=== PATIENT | female | born 1935 | race Two or more races ===

== ENCOUNTER 2018-05-31 09:28 | Inpatient (IN) | payer OTHER, MEDICARE ==
[~2018-05-31] VITALS: Ht 160 cm; Wt 49.0 kg
[2018-05-31] VITALS (36 sets, daily range): BP systolic 56–161; BP diastolic 25–108
[~2018-05-31 09:28] MED LIST: HYDR-4384 PO; METF-834 PO
--- NOTE | 2018-05-31 09:30 | NUR ---
PT NITHYA FROM [facility] C/O SOB, SPO2 IN 70S AT FACILITY. TEMPERATURE OF 103.1. PT IN BED AND ON MONITOR. WILL CONTINUE TO MONITOR.
--- NOTE | 2018-05-31 09:56 | NUR ---
TECH AT BEDSIDE FOR CXR
[2018-05-31] MEDS ORDERED: ACETAMINOPHEN 650 MG/SUPP.RECT RC ONE ×2 (10:00→10:15)
[2018-05-31] MEDS ORDERED: PIPERACILLIN /TAZOBACTAM 3.375 G in IV D5W 50 ML IV ONE (10:00)
[2018-05-31] MEDS ORDERED: IV NS 0.9% 1,000 ML BAG IV ONE (10:00)
[2018-05-31] MEDS ORDERED: VANCOMYCIN 1 GM in IV D5W 250 ML IV ONE (10:00)
--- NOTE | 2018-05-31 10:05 | NUR ---
URINE COLLECTED AND SENT TO LAB
[2018-05-31 10:06] LABS: BILIRUBIN,URINE SMALL (NEGATIVE); BLOOD, URINE Large Ery/uL (NEGATIVE); COLOR,URINE Yellow (YELLOW); KETONES,URINE Trace (NEGATIVE); LEUKOCYTE ESTERASE ,URINE Large (NEGATIVE); NITRITE, URINE Negative (NEGATIVE); PROTEIN,URINE 100 mg/dl (NEGATIVE); UGLUCOSE Negative (NEGATIVE); UROBILINOGEN,URINE 0.2 EU/dL (0.2)
[2018-05-31 10:07] LABS: APPEARANCE,URINE CLOUDY (CLEAR); BASOPHILS % (AUTO) 0.1 % (0.0-2.0); EOSINOPHILS % (AUTO) 1.8 % (0.0-6.0); HEMATOCRIT 35 % (33-45); HEMOGLOBIN 11.7 g/dL (11.5-14.8); LYMPHOCYTES # (AUTO) 0.8 /CMM (0.8-4.8); MEAN CORPUSCULAR HGB CONC 33 g/dl (31.0-36.0); MEAN CORPUSCULAR VOLUME 94 fL (82-100); MONOCYTES % (AUTO) 7.3 % (2.0-12.0); NEUTROPHILS # (AUTO) 11.5 /CMM (1.8-8.9); NEUTROPHILS % (AUTO) 84.8 % (43.0-81.0); PLATELET COUNT (AUTO) 183 /CMM (150-450); RED BLOOD CELL COUNT(AUTO) 3.75 MIL/uL (4.0-5.2); WHITE BLOOD COUNT (AUTO) 13.5 K/uL (4.3-11.0)
[2018-05-31 10:08] LABS: BACTERIA,URINE 2+ /HPF (None Seen); WBC,URINE 21-50 /HPF (0-3)
[2018-05-31] MEDS ORDERED: HYDR-4384 PO (10:08)
[2018-05-31 10:09] LABS: CALCIUM, SERUM 11.5 mg/dL (8.5-10.1); CARBON DIOXIDE 19 mmol/L (21-32); CHLORIDE 104 mmol/L (98-107); CREATININE 3.4 mg/dL (0.6-1.3); GLUCOSE 233 mg/dL (74-106); POTASSIUM 4.8 mmol/L (3.5-5.1); SODIUM SERUM 138 mmol/L (136-145); UREA NITROGEN, BLOOD 74 mg/dL (7-18)
--- NOTE | 2018-05-31 10:10 | NUR ---
FAMILY AT BEDSIDE
[2018-05-31 10:15] LABS: ALANINE AMINOTRANSFERASE 814 U/L (12-78); ALBUMIN 2.6 g/dL (3.4-5.0); ALKALINE PHOSPHATASE 83 U/L (46-116); BILIRUBIN,DIRECT 1.1 mg/dL (0.0-0.2); BILIRUBIN,TOTAL 1.5 mg/dL (0.2-1.0)
--- NOTE | 2018-05-31 10:15 | NUR ---
DR MARROQUIN AT BEDSIDE
--- NOTE | 2018-05-31 10:30 | NUR ---
PT TRANSFERRED TO RADIOLOGY FOR HEAD CT
[2018-05-31 10:35] LABS: BAND % (MANUAL) 6 % (0.0-5.0); EOSINOPHILS % (MANUAL) 2 % (0-4); LYMPHOCYTES % (MANUAL) 7 % (16-48); MONOCYTES % (MANUAL) 3 % (0-11.0); NEUTROPHILS % (MANUAL) 82 (42-76)
[2018-05-31 11:00] LABS: ASPARTATE AMINOTRANSFERASE 1371 U/L (15-37)
[2018-05-31] MEDS ORDERED: ASPIRIN 300 MG/SUPP.RECT RC ONE ×2 (11:30→11:51)
--- NOTE | 2018-05-31 11:43 | NUR ---
DR FELIX CARDIO SPA MANAGER/ESTHETICIAN WAS PAGED
--- NOTE | 2018-05-31 12:28 | NUR ---
CONTACT INFO: JIE (NEPH) [phone]
--- NOTE | 2018-05-31 12:33 | NUR ---
VERBAL ORDER FROM DR MARROQUIN FOR 500 ML NS
--- NOTE | 2018-05-31 12:56 | NUR ---
PT ADMIT TO ICU 252
[2018-05-31] MEDS ORDERED: IV NS 0.9% 500 ML BAG IV ONE (13:00)
--- NOTE | 2018-05-31 13:06 | NUR ---
GAVE REPORT TO KATIE HERNANDEZ
[2018-05-31] MEDS ORDERED: HEPARIN INFUSION/D5W 500 ML IV PRN (14:30)
[2018-05-31 14:34] LABS: ABG BASE EXCESS -8.2 mmol/L; ABG OXYGEN SATURATION 89.9 % (92.0-98.5); ABG PCO2 30.4 mmHg (35.0-45.0); ABG PH 7.347 (7.350-7.450); ABG PO2 64.7 mmHg (75.0-100.0); AaDO2 185.5 mmHg; COHb 0.3 % (0.5-1.5); MetHb 0.4 % (0.0-1.5); O2Hb 89.3 % (94.0-97.0); SITE, ABG Right Radial; VENT MODE, BG SIMPLE MASK
[2018-05-31] MEDS ORDERED: PIPERACILLIN /TAZOBACTAM 3.375 G in IV D5W 50 ML IV SCH (15:00)
[2018-05-31] MEDS ORDERED: HEPARIN SODIUM, PORCINE 5000 UNITS/1 ML VIAL IV ONE (15:00)
--- NOTE | 2018-05-31 15:13 | NUR ---
RN NOTE 1400: Admitted 83 y/o female from ED for Sepsis and NSTEMI. Patient does not follow commands at this time. With right arm splint for right humerus fracture and left wrist splint for left wrist fracture. Noted with right arm bruises and left buttock DTI and sacral redness, taken pictures and attached to chart. ST 120's with BBB on the monitor. With RH PIV. 1420: surgery technician at bedside/ S/E by Dr. Marycruz MD ordered Trop, Heparin drip, and ABG. 1430: PICC line nurse at bedside for PICC insertion. 1440: S/E by Dr. Alarcon, aware for the ABG. 1500: Noted patient with moaning and crying, able to get order of Morphine. 1525: Family at bedside and wanting to change code status to DNR/DNI, aware, obtained order. Addendum: 05/31/18 at 1649 by DAVID DAY RN 1400: Admitted patient with Fong cath started from ER, noted with light brown urine with sediments and cloudy.
[2018-05-31] MEDS: MORPHINE SULFATE INJ 4 MG/ML DISP.SYRIN IV PRN ×2 (15:26→21:28)
[2018-05-31] MEDS ORDERED: FEE PK DOSING 1 MIN EA MC ONE (15:29)
[2018-05-31] MEDS ORDERED: IV NS 0.9% 1,000 ML IV PRN ×2 (15:30→15:39)
[2018-05-31] MEDS ORDERED: ACETAMINOPHEN 325 MG TABLET PO PRN (16:00)
[2018-05-31] MEDS ORDERED: ONDANSETRON HCL/PF 4 MG/2 ML VIAL IVP PRN (16:00)
[2018-05-31] MEDS ORDERED: NOREPINEPHRINE 8 MG in IV D5W 500 ML IV PRN (16:00)
[2018-05-31] MEDS ORDERED: MEROPENEM 1 G in IV NS 0.9% 100 ML IV SCH (16:00)
[2018-05-31] MEDS ORDERED: Z GUARD REMEDY 2 OZ OINT TP PRN (16:00)
--- NOTE | 2018-05-31 16:30 | NUR ---
RN NOTE Trop 74.99, made Dr. Joel aware.
[2018-05-31] MEDS ORDERED: MEROPENEM 500 MG in IV NS 0.9% 100 ML IV SCH (18:00)
[2018-05-31] MEDS ORDERED: MICAFUNGIN SODIUM 100 MG in IV NS 0.9% 100 ML IV SCH (18:00)
[2018-05-31] MEDS: NOREPINEPHRINE 8 MG in IV D5W 500 ML IV PRN (19:46)
--- NOTE | 2018-05-31 20:00 | NUR ---
[facility]ING [facility] OP - NOTES - PT RECEIVED IN BED, PT WITH HISTORY OF ADVANCE DEMENTIA, DIABETES MELLITUS, AND RECENT ADMISSION FOR A RIGHT SHOULDER DISLOCATION FRACTURE STATUS POST SURGICAL INTERVENTION, ADMITTED FOR SEPTIC SHOCK, NSTEMI, RENAL FAILURE AND PULMONARY EDEMA. PT IS NOT OPENING EYES, ONLY RESPONDING TO PAINFUL STIMULI. BP LOW, IN 60S, WILL START PRESSORS NEEDED. PT IS ON NONREBREATHER 15LPM O2SAT 95%. PT HAS F/C POOR URINE OUTPUT. PT HAS CHELSEA PICC LINE. WILL CONTINUE TO MONITOR
--- NOTE | 2018-05-31 20:09 | NUR ---
bp dropped to 56/26, bp was repeated multiple times with sbp remaining in 50s-80s, manual bp difficult to hear because pulse is faint on palpation. doppler audible on right femoral artery correlating with hr 120s. levophed started to maintain bp
[2018-05-31] MEDS ORDERED: PIPERACILLIN /TAZOBACTAM 3.375 G in IV D5W 100 ML IV SCH (22:00)
[2018-06-01] VITALS (20 sets, daily range): BP systolic 0–127; BP diastolic 0–93
[2018-06-01] MEDS ORDERED: PHENYLEPHRINE 20 MG in IV D5W 250 ML IV PRN (01:00)
[2018-06-01] MEDS ORDERED: PHENYLEPHRINE 80 MG in IV NS 0.9% 250 ML IV PRN (01:00)
[2018-06-01] MEDS ORDERED: PHENYLEPHRINE 10 MG/ML VIAL ONE (01:05)
[2018-06-01] MEDS: NOREPINEPHRINE 8 MG in IV D5W 500 ML IV PRN (01:10)
--- NOTE | 2018-06-01 01:15 | NUR ---
PT BP CONTINUING TO DROP AFTER LEVO MAX, BAR MACHINE OPERATOR PRODUCTION NOTIFIED, WILL START TOSHIA TO MAINTAIN BP
--- NOTE | 2018-06-01 03:23 | NUR ---
I CALLED THE NEPHEW JIE PERAZA, NOTIFIED HIM ABOUT PTS DETERIORATING CONDITION AND HE AGREED TO HAVE THE PATIENT ON COMFORT MEASURES ONLY, STATE PATROL OFFICER DAYSI DOZIER
[2018-06-01] MEDS: MORPHINE SULFATE INJ 4 MG/ML DISP.SYRIN IV PRN (03:40)
--- NOTE | 2018-06-01 03:59 | NUR ---
PT IS ASYSTOLE, NO RESPIRATIONS, PUPILS FIXED. FAMILY NOTIFIED OF
--- NOTE | 2018-06-01 04:08 | NUR ---
[facility] CALLED AND NOTIFIED OF , REFERENCE NUMBER [id number], [facility] WILL CALL BACK TO FOLLOW UP
--- NOTE | 2018-06-01 04:09 | NUR ---
I CALLED THE PANTRY STEWARD/STEWARDESS, SKYLAR ID NUMBER [id number], SHE SAID THE PATIENT IS NOT A CORONERS CASE. WILL HAVE FAMILY DECIDE ON MORTUARY
--- NOTE | 2018-06-01 04:10 | NUR ---
[facility], YAMILE SAID PT IS NOT A CANDIDATE, PT IS DECLINED, REFERENCE NUMBER [id number]
--- NOTE | 2018-06-01 04:39 | NUR ---
PHOTOCOPYING MACHINE OPERATOR, PT AT 0400. PT WAS ON COMFORT FOCUS. MAJOR ARTERIES NO PULSE PALPABLE. PUPLE DILATED AND FIXED,
[2018-06-01] MEDS ORDERED: ASPIRIN 300 MG/SUPP.RECT RC SCH (09:00)
[2018-06-02] MEDS ORDERED: VANCOMYCIN 500 MG in IV D5W 100 ML IV SCH (11:00)
== END 2018-06-01 04:00 | disposition expired | DRG 720 ==
LOC: ER 09:30 → ICU 13:25
PROVIDERS: ADMIT Nurse Practitioner Acute Care; ATTEND Nurse Practitioner Acute Care
PROC: 02HV33Z Insertion of Infusion Device into Superior Vena Cava, Percutaneous Approach (ICD-10-PCS; principal; 2018-05-31)
PROC: B548ZZA Ultrasonography of Superior Vena Cava, Guidance (ICD-10-PCS; principal; 2018-05-31)
DX: A41.9 Sepsis, unspecified organism (principal); D65 Disseminated intravascular coagulation [defibrination syndrome]; I21.4 Non-ST elevation (NSTEMI) myocardial infarction; J96.01 Acute respiratory failure with hypoxia; E43 Unspecified severe protein-calorie malnutrition; E83.52 Hypercalcemia; I27.21 Secondary pulmonary arterial hypertension; Z51.5 Encounter for palliative care; K72.00 Acute and subacute hepatic failure without coma; G92 Toxic encephalopathy; E87.2 Acidosis; F03.90 Unspecified dementia, unspecified severity, without behavioral disturbance, psychotic disturbance, mood disturbance, and anxiety; K21.9 Gastro-esophageal reflux disease without esophagitis; N17.0 Acute kidney failure with tubular necrosis; R57.0 Cardiogenic shock; Z66 Do not resuscitate; R65.21 Severe sepsis with septic shock; I50.43 Acute on chronic combined systolic (congestive) and diastolic (congestive) heart failure; I25.5 Ischemic cardiomyopathy; I25.10 Atherosclerotic heart disease of native coronary artery without angina pectoris; I35.0 Nonrheumatic aortic (valve) stenosis; F09 Unspecified mental disorder due to known physiological condition; Z91.81 History of falling; N12 Tubulo-interstitial nephritis, not specified as acute or chronic; B96.20 Unspecified Escherichia coli [E. coli] as the cause of diseases classified elsewhere; R74.0 Nonspecific elevation of levels of transaminase and lactic acid dehydrogenase [LDH]; E88.09 Other disorders of plasma-protein metabolism, not elsewhere classified; M62.50 Muscle wasting and atrophy, not elsewhere classified, unspecified site; Z68.1 Body mass index [BMI] 19.9 or less, adult; I36.1 Nonrheumatic tricuspid (valve) insufficiency; E11.65 Type 2 diabetes mellitus with hyperglycemia; N13.6 Pyonephrosis
CPT/HCPCS: 36415; 36569; 36600; 70450-TC; 71045-TC; 80048-TC; 80076-TC; 81000-TC; 83605-TC; 84443-TC; 84484-TC; 85025-TC; 85385-TC; 85730-TC; 87040-TC; 87086-TC; 87186-TC; 90935-TC; 93307-TC; A4606; C1751; G0378; J1644; J2185; J2248; J2270; J2370; J2543; J3370; J7030; J7040; J7050; J7060; Z7610